=== PATIENT | male | born 1945 | race Caucasian/White ===

== ENCOUNTER 2017-02-06 19:30 | Outpatient (CLI) | payer MEDICARE, OTHER ==
--- OUTSIDE RECORDS SUMMARY | 2017-02-17 03:18 | XMS | Clinical Summary ---
:1945 Author Organization [facility] Address [address] [place] [address] Phone Care Team Providers Name Role Phone [place] [facility] Primary Care Provider tel Allergies No Known Allergies Current Medications Prescription Sig. Disp. Refills Start Date End Date Status carvedilol (COREG) 3.125 Take 3.125 mg by Active MG tablet mouth 2 (two) times a day. metFORMIN (GLUCOPHAGE) Take 500 mg by 10/08/2015 Active 500 MG tablet mouth 2 (two) times a day. CRESTOR 40 mg tablet Take 40 mg by mouth Active daily. ezetimibe (ZETIA) 10 mg Take 5 mg by mouth Active tablet daily. COQ10, LIPOSOMAL Take 200 mg by Active UBIQUINOL, ORAL mouth daily. famotidine (PEPCID) 10 MG Take 10 mg by mouth Active tablet daily as needed. aspirin 325 MG tablet Take 325 mg by Active mouth daily. lisinopril Take 2.5 mg by Active (PRINIVIL,ZESTRIL) 2.5 mg mouth daily. tablet DOCUSATE SODIUM ORAL Take 1 capsule by Active mouth daily as needed. clopidogrel (PLAVIX) 75 Take 75 mg by mouth Active mg tablet daily. 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 10/31/2016 Kidney stones 12/02/2015 Encounters Date Type Specialty Care Team Description 01/07/2017 Office Visit Isiah Vargas Calculus of kidney MD Ju (Primary Dx) 11/23/2016 Office Visit UrologIsiah Bonilla Calculus of kidney MD Ju (Primary Dx) 11/22/2016 Telephone Isiah Vargas MD 11/17/2016 Anesthesia Event General Internal [place], Medicine Jazzy Samano CRNA 11/17/2016 Procedure Pass General Surgery 11/17/2016 Surgery General Surgery Isiah Lowery CYSTOSCOPY, RIGHT MD Ju RETROGRADE PYELOGRAM, WITH LASER LITHOTRIPSY, RIGHT URETERAL STENT PLACEMENT 11/16/2016 - Hospital Encounter General Internal John Lundberg, Ureteral calculus, 11/18/2016 Medicine MD flores (Primary Ciara Bautista MD Dx);Hydronephrosis with urinary obstruction due to ureteral calculus;Right ureteral calculus from Last 3 Months Family History Relation Name Status Comments Father Mother Social History Tobacco Use Types Packs/Day Years Used Date Former Smoker Alcohol Use Drinks/Week oz/Week Comments Yes Sex Assigned at Date Recorded Not on file Last Filed Vital Signs Vital Sign Reading Time Taken Blood Pressure 112/59 01/07/2017 9:17 AM CDT Pulse 63 01/07/2017 9:17 AM CDT Temperature 36.1 C (96.9 F) 11/18/2016 11:50 AM CDT Respiratory Rate 18 11/18/2016 11:50 AM CDT Oxygen Saturation 97% 11/18/2016 11:50 AM CDT Inhaled Oxygen Concentration - - Weight 93.9 kg (207 lb) 01/07/2017 9:17 AM CDT Height 185.4 cm (6' 1") 01/07/2017 9:17 AM CDT Body Mass Index 27.31 01/07/2017 9:17 AM CDT Plan of Treatment Health Maintenance Due Date Last Done Comments COLONOSCOPY 12/19/1995 ZOSTER VACCINE 2005 PNEUMOCOCCAL POLYSACCHARIDE VACCINE AGE 65 AND OVER 2010 PNEUMOCOCCAL-13 2010 INFLUENZA VACCINE 11/27/2016 Implants Implanted Type Area Senior Safety Support Manager Device Expiration Model / Identifier Date Serial / Lot Catheter Uretl 5fr 70cm Opn-End Flx-Tp Std - [id number] Cardiovascular Right: COOK 08/01/2019 [id number] / Implanted:11/17/2016 (Quantity not on file) Implants Ureter, UROLOGICAL / [place] [id number] Stent Ureteral Inlay [place] 4.7fr 26cm Without Guidewire - [id number] Surgical Stents Right: BARD 03/15/2021 [id number] / Implanted:11/17/2016 (Quantity not on file) Ureter, UROLOGICAL / [employer] [id number] Procedures Procedure Name Priority Date/Time Associated Diagnosis Comments CYSTOSCOPY, RIGHT 11/17/2016 1:30 PM RIGHT URETERAL STONE RETROGRADE PYELOGRAM, CDT WITH LASER LITHOTRIPSY, RIGHT URETERAL STENT PLACEMENT from Last 3 Months Results POC urinalysis dipstick (01/07/2017 9:20 AM) Component Value Ref Range Color urine, POC Yellow Clarity urine, POC Clear Glucose urine, POC Negative Negative Bilirubin urine, POC Negative Negative Ketones urine, POC Negative Negative Specific gravity urine, POC >/=1.030 1.005 - 1.030 Blood urine, POC Trace(A) Negative pH urine, POC 5.5 5.0, 5.5, 6.0, 6.5, 7.0, 7.5, 8.0, 8.5 Protein urine, POC Trace(A) Negative Urobilinogen urine, POC <2.0 <2.0 Nitrite urine, POC Negative Negative Leukocyte esterase urine, POC Negative Negative Specimen Performing Laboratory Urine OR FL< 1 Hour (11/17/2016 3:21 PM) [facility]imen [facility] [address] [place] [address] Narrative EXAMINATION:OR FL 1 HOUR CLINICAL HISTORY:Intraoperative IMPRESSION: Fluoroscopy was provided. No radiologist present.Please see procedure report for discussion of procedure, findings. [facility]-[id number] Procedure Note Interface, Radiology Results Incoming - 11/26/2016 9:21 AM CDT EXAMINATION: OR FL 1 HOUR CLINICAL HISTORY: Intraoperative IMPRESSION: Fluoroscopy was provided. No radiologist present. Please see procedurereport for discussion of procedure, findings. [facility]-[id number] Calculi analysis with photo (11/17/2016 9:15 AM) Component Value Ref Range Calculi mass 122 mg Calculi number Numerous Calculi size Various mm Calculi descrption See Note Comment: Specimen consists of numerous, various sized (1 mm to 9 mm), brown, irregular calculi fragments. Calculi composition See Note Comment: Calculi composed primarily of calcium oxalate monohydrate. INTERPRETIVE INFORMATION: Calculi (Stone) analysis Calculi are the products of physiological processes that yield crystalline compounds in a matrix of biological compounds and blood.Matrix components are not reported.The clinically significant crystalline components identified in calculi specimens are reported.Gross description may not be consistent with composition determined by FTIR analysis. EER calculi (stone) analysis and See Note photo Comment: Access [facility] Enhanced Report using either link below: -Direct access: [email or web address] -Enter Username, Password: [email or web address] Username: [email or web address] Password: [email or web address] Performed by [facility], [address] [place] [id number] [email or web address], Brendan Garcia MD - Lab. Director Specimen Performing Laboratory [facility] [address] [place] [address] Surgical pathology request (11/17/2016 9:15 AM) Component Value Ref Range Surgical pathology report See link below for PDF Lab Report Specimen Performing Laboratory [facility] DEPARTMENT OF PATHOLOGY AND GENOMIC MEDICINE [address] [place] [phone] from Last 3 Months Insurance Payer Benefit Plan / Group Subscriber ID Type Phone Address MEDICARE RAILROAD MEDICARE [employer] [id number] Medicare [employer] [place] [employer] [place] [employer] [id number] Commercial Home: [phone] [place], [place] [phone]
== END 2017-02-06 19:31 | disposition home or self-care (01) ==
LOC: SLEEPLAB 19:30
PROVIDERS: ATTEND Internal Medicine Critical Care Medicine
DX: G47.33 Obstructive sleep apnea (adult) (pediatric) (principal)
CPT/HCPCS: 95811